=== PATIENT | female | born 1990 | race American Indian/Alaskan Native ===

== ENCOUNTER 2020-04-11 16:03 | Outpatient (CLI) | payer MEDICAID, BC ==
--- NOTE | 2020-04-11 18:18 | Ultrasound Report ---
US OB >= 14 weeks Fetus INDICATION / CLINICAL INFORMATION: THREATEN AB VAG BLEEDING. COMPARISON: None available. FINDINGS: There is a single live fetus in the uterus in breech position of approximately 17 weeks 3 days gestat ional age. A normal amount of amniotic fluid is present. heart rate is 133 and estimated birthweight is 192 g. BPD is 3.8 equals 17 weeks 3 days Head cervical cuff right is 14.6 equaling 17 weeks 5 days Abdominal circumference is 12.0 equaling 17 weeks 5 days Femur length is 2.3 equaling 16 weeks 6 days The stomach, kidneys, bladder, heart, umbilical cord, cord insertion, intracranial structures a nd spine are grossly normal. Cervix length is 3.9 cm IMPRESSION: Single live fetus of approximately 17 weeks 3 days gestational age in breech position. A normal amoun t of amniotic fluid is present, heart rate is 133 and estimated birthweight is 192 g. Cer vix length is 3.9 cm Signer Name: Hollis Sherwood MD FACR Signed: 04/11/2020 6:14 PM Workstation Name: [id number]
== END 2020-04-11 16:04 | disposition home or self-care (01) ==
LOC: US 16:03
PROVIDERS: ATTEND Nurse Practitioner Women's Health
DX: O20.0 Threatened abortion (principal); Z3A.16 16 weeks gestation of pregnancy
CPT/HCPCS: 76805

== ENCOUNTER 2020-04-23 20:27 | Emergency (ER) | payer BC, MEDICAID ==
[2020-04-23 21:43] VITALS: BP 115/73
== END 2020-04-23 21:55 | disposition left against medical advice (07) ==
LOC: ED 20:27
DX: R10.2 Pelvic and perineal pain (principal); Z53.21 Procedure and treatment not carried out due to patient leaving prior to being seen by health care provider

== ENCOUNTER 2020-09-13 06:31 | Outpatient (CLI) | payer MEDICAID ==
[2020-09-13 06:46] VITALS: BP 127/82
--- NOTE | 2020-09-13 09:00 | Ultrasound Report ---
ULTRASOUND OBSTETRIC LIMITED ULTRASOUND BIOPHYSICAL PROFILE INDICATION / CLINICAL INFORMATION: RENÉE. Clinical Gestational Age (GA): 39.1 weeks.days COMPARISON: None available. FINDINGS: BREATHING MOVEMENT = 2 GROSS BODY MOVEMENT = 2 TONE = 2 QUALITATIVE AMNIOTIC FLUID VOLUME = 2 TOTAL BIOPHYSICAL SCORE = 8/8 HEART RATE (beats per minute): 133 AMNIOTIC FLUID INDEX (cm) = 16.3 (normal = 7-24 cm) PRESENTATION: Cephalic. ADDITIONAL FINDINGS: None. IMPRESSION: 1. Biophysical Score = 8/8 2. Single living intrauterine gestation in cephalic position. Signer Name: Ian Sherwood MD Signed: 09/13/2020 8:55 AM Workstation Name: [id number]
== END 2020-09-13 09:15 | disposition home or self-care (01) ==
LOC: TRG 06:31 → APU 06:38 → TRG 09:15
PROVIDERS: ATTEND Obstetrics & Gynecology
DX: O26.893 Other specified pregnancy related conditions, third trimester (principal); R10.9 Unspecified abdominal pain; Z3A.39 39 weeks gestation of pregnancy
CPT/HCPCS: 59025; 76815; 76819

== ENCOUNTER 2020-11-07 15:47 | Outpatient (CLI) | payer MEDICAID ==
--- NOTE | 2020-11-07 16:55 | Ultrasound Report ---
ULTRASOUND BREAST LEFT COMPLETE, 11/07/2020 CLINICAL INFORMATION / INDICATION: Breast feeding, 7 weeks , palpable lesion left breast at 6:00 TECHNIQUE: Complete sonographic evaluation of all 4 quadrants and retroareolar region was performed. COMPARISON: None. FINDINGS: At the site of palpable complaint at 6:00, a superficial cystic lesion is seen measuring 2. 3 cm which is anechoic centrally but appears to have a thickened wall. No associated vascularity is s een in the wall and no increased vascularity is seen surrounding this area. This is directly adjacent to the skin surface but does not obviously penetrate the cutaneous layer. In the upper outer quadrant in the 1:00 to 2:00 region, roughly 2 cm from the nipple, an elongated tu bular type hypoechoic lesion is seen with a thickness of 6 mm and an overall length of approximately 4 cm. Possibly this represents 2 adjacent ovoid lesions but I favor this being a tubular and likely d uctal process with internal echoes. No vascularity or shadowing is seen. In the 2:00 position, 7 cm from the nipple, an ovoid wider than tall mixed echogenicity focus is seen measuring 13 mm which has tiny internal cystic areas and mixed echogenicity otherwise. I do not have an assessment vascularity. No definite shadowing is seen. In the 3:00 position, 4 cm from the nipple, a mixed echogenicity lesion is seen with some cystic qual ities and either internal debris or solid components. I do not have an assessment vascularity. No sha dowing is seen. IMPRESSION: Multiple abnormalities are seen as above. The site of the palpable abnormality 6:00 shows a cystic lesion with apparent thickened elizalde but without vascularity. Other areas including what ma y be a dilated duct with internal debris and indeterminate partially cystic areas as described. In th is young patient who is currently breast-feeding and only recently , I suspect some or all of these changes may relate to that process. The 6:00 abnormality may represent a galactocele; I radha ot exclude the possibility of an abscess but given the appearance of surrounding tissue and the clini paul situation do not favor that diagnosis. The tubular type structure at 1:00 may represent a dilated duct with internal secretions. Follow up recommendation: Short-term sonographic follow-up is suggested as is clinical correlation. U nless there is overriding clinical concern, I would suggest repeat left breast ultrasound in 1-3 ruby hs. BI-RADS Category 3: Probably Benign. Followup in 3 months. A normal or "negative" report should not preclude biopsy or follow-up of a clinically suspicious find ing. Signer Name: Salbador Elaine MD Signed: 11/07/2020 4:50 PM Workstation Name: [id number]
== END 2020-11-07 15:48 | disposition home or self-care (01) ==
LOC: US 15:47
PROVIDERS: ATTEND Advanced Practice Midwife
DX: N60.02 Solitary cyst of left breast (principal); N63.20 Unspecified lump in the left breast, unspecified quadrant